=== PATIENT | male | born 1965 | race Caucasian/White ===

== ENCOUNTER 2017-06-09 12:56 | Emergency (ER) | payer MEDICARE, OTHER ==
[~2017-06-09] VITALS: Ht 180.3 cm; Wt 73.5 kg
[~2017-06-09 12:56] MED LIST: AMLO5TAB2 PO; ATORVASTATIN CA80 MG PO; CALC0.25 PO; CLON1PAT10 TD; CLOP75TA PO; CYCL5TAB PO; FAMO40TA4 PO; FOLI1CAP11 PO; FURO80TA3 PO; HEPA1000 IJ; ISOS120T2 PO; LISI40TA PO; METO-247 PO; SEVE800T9 PO; SODI650T PO
[2017-06-09 14:38] VITALS: BP 163/78
[2017-06-09] MEDS ORDERED: SPIR50TA2 PO (15:33)
[2017-06-09] MEDS ORDERED: PANT40TA5 PO (15:33)
[2017-06-09] MEDS ORDERED: CLON1PAT11 TD (15:33)
[2017-06-09] MEDS ORDERED: CYCL5TAB PO (15:33)
[2017-06-09] MEDS ORDERED: NITR0.4T22 SL (15:33)
[2017-06-09] MEDS ORDERED: METO10TA5 PO (15:33)
[2017-06-09] MEDS ORDERED: EMLA (15:33)
[2017-06-09] MEDS ORDERED: CLON1PAT9 TD (15:33)
[2017-06-09] MEDS ORDERED: SEVE800T9 PO (15:33)
[2017-06-09] MEDS ORDERED: AMLO10TA2 PO (15:33)
[2017-06-09] MEDS ORDERED: CARV25TA PO (15:33)
[2017-06-09] MEDS ORDERED: ASPI-630 PO (15:33)
[2017-06-09] MEDS ORDERED: MINO2.5T12 PO (15:33)
[2017-06-09 16:27] LABS: BASO # 0.1 x10^3/uL (0.0-0.2); BASO % 1 % (0-3); EOS % 3 % (0-3); HEMATOCRIT 21.3 % (39.0-53.0); HEMOGLOBIN 7.1 g/dL (13.0-17.5); LYMPH % 19 % (24-48); MEAN CORPUSCULAR HEMOGLOBIN 32 pg (25-35); MEAN CORPUSCULAR HGB CONC 33 g/dL (31-37); MEAN CORPUSCULAR VOLUME 96 fL (79-100); MONO % 8 % (0-9); NEUT % 68 % (31-73); PLATELET COUNT 198 x10^3/uL (140-400); RED BLOOD COUNT 2.23 x10^6/uL (4.30-5.70); RED CELL DISTRIBUTION WIDTH 17.9 % (11.5-14.5); WHITE BLOOD COUNT 10.3 x10^3/uL (4.0-11.0)
[2017-06-09 16:35] LABS: INR 1.1 (0.8-1.1); PROTHROMBIN TIME PATIENT 13.5 SEC (11.7-14.0)
[2017-06-09 16:46] LABS: CREATININE 12.5 mg/dL (0.7-1.3); GFR 4.3; POTASSIUM 5.7 mmol/L (3.5-5.1)
[2017-06-09 16:51] LABS: ALBUMIN 4.2 g/dL (3.4-5.0); ALBUMIN/GLOBULIN RATIO 1.1 (1.0-1.7); TOTAL BILIRUBIN 0.5 mg/dL (0.2-1.0); TOTAL PROTEIN 7.9 g/dL (6.4-8.2)
--- NOTE | 2017-06-09 17:56 | PHYS DOC ---
Past Medical History Past Medical History: Anemia, CAD, CHF, High Cholesterol, Heart Disease, Hypertension, [place], Renal Failure, Other Additional Past Medical Histor: HEMODIALYSIS Past Surgical History: Tonsillectomy, Other Additional Past Surgical Histo: PD TUBE PLACEMENT/REMOVAL, VASECTOMY, KNEE Alcohol Use: None Drug Use: None Adult General Chief Complaint Chief Complaint: BLOODY STOOL HPI HPI Patient is a 51 year old male, who is on home hemodialysis 6 days a week, presents to the ED with the complaint of bloody stools. Patient has been having intermittent bloody stools both when he has a bowel movement and also sees blood when he wipes, for at least 10 days. He states today he has lost a lot of blood. The patient has been seen at [facility] and also was seen at the ER in [place], where he lives. He has had 2 CT scans which were unrevealing. He has an appointment tomorrow at 3:00 to see DARA Mckeon, but states he was nervous because he lost a lot of blood today. He shouldn't has had endoscopy and they have not been able to find the source. Also, in the past, he has had camera endoscopy. Patient does home hemodialysis 6 days a week, he has done that for 5 years. He gives himself heparin for the hemodialysis and states he is scared to do dialysis because he does not want to take Keppra and when he is bleeding. His chronic meds include aspirin 81 mg but no other oral blood thinners. When the patient was seen at a hospital recently, they said he was "impacted" and gave him GoLYTELY. He did have stools after that. Patient states that he is at the top of the kidney transplant list and he is very adamant that he cannot have a blood transfusion because you cannot have a blood transfusion and then get a transplant. Patient also is complaining of left-sided abdominal pain intermittently. His previous ER visits have not yielded a cause for this even though he has had 2 CT scans in the last couple of weeks. The patient's was able to pull a CT scan report on her phone, from the medical record portal, and I was able to review that CT scan report. It was dated May 29. There was no finding that would explain left upper quadrant abdominal pain. He was noted to have a small ventral hernia containing no intestine. PCP in [facility] [employer] Dr. Quinn DIAMOND he was scheduled to see Dr. Wing Campbell tomorrow at 3:00, I don't believe he had a previous relationship with him. Review of Systems Review of Systems Constitutional: Denies fever or chills [] Respiratory: Denies shortness of breath [] Cardiovascular: Denies chest pain GI: As in history of present illness. : Denies dysuria or hematuria [] Musculoskeletal: Denies acute back pain or joint pain [] Neurologic: Denies focal weakness Allergies Allergies Physical Exam Physical Exam Constitutional: Well developed, well nourished, no acute distress, non-toxic appearance. Appears pale. Alert, mentating normally, warm and dry. Ambulatory. HENT: Normocephalic, atraumatic, bilateral external ears normal, nose normal. [ ] Eyes: conjunctiva normal, no discharge. [] Neck: Normal range of motion, no stridor. [] Cardiovascular:Heart rate regular rhythm, no murmur [] Lungs & Thorax: Bilateral breath sounds clear to auscultation [] Abdomen: Bowel sounds normal, soft, nondistended, tenderness to palpation mostly in the left upper quadrant, there is questionably a palpable fullness there but no guarding or rebound. Skin: Warm, dry, no erythema, no rash. [] Extremities: No tenderness, no cyanosis, no clubbing, ROM intact, no edema. [] Neurologic: Alert and oriented X 3, normal motor function, no focal deficits noted. [] Current Patient Data Vital Signs Vital Signs Date Time Temp Pulse Resp B/P (MAP) Pulse Ox O2 Delivery O2 Flow Rate FiO2 06/09/17 14:38 97.9 74 18 163/78 (106) 96 Room Air 97.9 Lab Values Laboratory Tests Test 06/09/17 16:10 White Blood Count 10.3 x10^3/uL (4.0-11.0) Red Blood Count 2.23 x10^6/uL (4.30-5.70) L Hemoglobin 7.1 g/dL (13.0-17.5) L Hematocrit 21.3 % (39.0-53.0) L Mean Corpuscular Volume 96 fL (79-100) Mean Corpuscular Hemoglobin 32 pg (25-35) Mean Corpuscular Hemoglobin Concent 33 g/dL (31-37) Red Cell Distribution Width 17.9 % (11.5-14.5) H Platelet Count 198 x10^3/uL (140-400) Neutrophils (%) (Auto) 68 % (31-73) Lymphocytes (%) (Auto) 19 % (24-48) L Monocytes (%) (Auto) 8 % (0-9) Eosinophils (%) (Auto) 3 % (0-3) Basophils (%) (Auto) 1 % (0-3) Neutrophils # (Auto) 7.0 x10^3uL (1.8-7.7) Lymphocytes # (Auto) 2.0 x10^3/uL (1.0-4.8) Monocytes # (Auto) 0.8 x10^3/uL (0.0-1.1) Eosinophils # (Auto) 0.3 x10^3/uL (0.0-0.7) Basophils # (Auto) 0.1 x10^3/uL (0.0-0.2) Prothrombin Time 13.5 SEC (11.7-14.0) Prothrombin Time INR 1.1 (0.8-1.1) PTT 31 SEC (24-38) Sodium Level 137 mmol/L (136-145) Potassium Level 5.7 mmol/L (3.5-5.1) H Chloride Level 95 mmol/L (98-107) L Carbon Dioxide Level 24 mmol/L (21-32) Anion Gap 18 (6-14) H Blood Urea Nitrogen 85 mg/dL (8-26) H Creatinine 12.5 mg/dL (0.7-1.3) H Estimated GFR (Cockcroft-Gault) 4.3 BUN/Creatinine Ratio 7 (6-20) Glucose Level 95 mg/dL (70-99) Calcium Level 9.0 mg/dL (8.5-10.1) Total Bilirubin 0.5 mg/dL (0.2-1.0) Aspartate Amino Transferase (AST) 14 U/L (15-37) L Alanine Aminotransferase (ALT) 14 U/L (16-63) L Alkaline Phosphatase 68 U/L (46-116) Total Protein 7.9 g/dL (6.4-8.2) Albumin 4.2 g/dL (3.4-5.0) Albumin/Globulin Ratio 1.1 (1.0-1.7) Lipase 152 U/L (73-393) Laboratory Tests 06/09/17 16:10 Laboratory Tests 06/09/17 16:10 EKG EKG [] Radiology/Procedures Radiology/Procedures [] Course & Med Decision Making Course & Med Decision Making Pertinent Labs and Imaging studies reviewed. (See chart for details) 51-year-old male, home hemodialysis patient 6 days a week, on the kidney transplant list, presents with ongoing bright red blood per rectum, intermittent for at least one to 2 weeks, states he lost a lot of blood today, has not been able to locate the source of bleeding. Today his hemoglobin is 7.1. Patient adamantly refuses blood transfusion at this time. He states he is on the transplant list and "you can't have a blood transfusion if you are on the transplant list". Also noted that his potassium is 5.7. Patient states "I don't worry about my potassium until it gets above 7." Patient attributes his potassium elevation to eating a baked potato. Patient states he has only had coffee and Sprite today. He is hopeful he might be able to have colonoscopy tomorrow. Patient is concerned because he does not feel safe using heparin for hemodialysis while he is actively bleeding. The patient at this time is hemodynamically stable although significantly anemic. Chart review, he was here in January 2016 with a hemoglobin of 12.9, so 7.1 represents a significant decline for him. I advised the patient and his that I recommend admitting him for urgent GI consultation and will also consult nephrology. He is agreeable to that plan. I discussed the case with Dr. Nunn, hospital medicine, who will admit the patient. I wrote bridge orders. I discussed the case with Dr. Kiran, GI. He requested that I obtain a nuclear medicine bleeding scan because it will be helpful if we can localize the source of bleeding to help decide about management. I did order that stat and I called radiology to call nuclear medicine and to get that done. Also with Dr. Wright, deck specialist science liaison. He will plan to dialyze the patient tomorrow. Patient was admitted in stable condition. He did not have any GI blood loss while in the emergency department. 184 after the patient had been admitted there was still in his ED room, Dr. Nunn was in the ED evaluating the patient when he became agitated and stated that he is going to leave, he just wants to go home and go see the GI doctor that he has an appointment with tomorrow. I tried to talk to the patient, I explained what the plan will be for his hospital stay, I reassured him that he will be seen tomorrow by both GI and nephrology, the patient would not listen, demanded that his IV to be taken out and adamantly stated that he is leaving. It was impossible to reason with the patient at this time and he barely stay long enough to get his saline lock removed by ED nursing staff prior to leaving. Disposition change to left AGAINST MEDICAL ADVICE. [] Dragon Disclaimer Dragon Disclaimer This electronic medical record was generated, in whole or in part, using a voice recognition dictation system. Departure Departure Impression: Primary Impression: GI bleed Additional Impressions: Chronic renal failure Hyperkalemia, diminished renal excretion Disposition: 07 AGAINST MEDICAL ADVICE Admitting Physician: Kristina Nunn Condition: STABLE Referrals: RICARDO SILVA MD (PCP) Problem Qualifiers CHLOE MYERS MD Jun 09, 2017 17:56
[2017-06-09] MEDS ORDERED: oxyCODONE IR 5 MG TABLET PO PRN (18:15)
[2017-06-09] MEDS ORDERED: ONDANSETRON PF 4 MG/2 ML VIAL. IV PRN (18:15)
[2017-06-09] MEDS ORDERED: CALCIUM CARBONATE 500 MG TAB.CHEW PO PRN (18:15)
[2017-06-09] MEDS ORDERED: MORPHINE SULFATE 2 MG/ML DISP.SYRIN. IV PRN (18:15)
[2017-06-09] MEDS ORDERED: ACETAMINOPHEN 325 MG TABLET. PO PRN (18:15)
[2017-06-09] MEDS ORDERED: ZOLPIDEM 5 MG TABLET. PO PRN (18:15)
[2017-06-09] MEDS ORDERED: PROCHLORPERAZINE 10 MG/2 ML VIAL. IV PRN (18:15)
--- NOTE | 2017-06-09 19:17 | PDOC ---
Provider Note Provider Note ER consult and discharge note on, Jerrod PABON 51-year-old male date of [birth year]. Admitted to the hospitalist service because of GI bleed bright red blood per rectum significant amount as relayed to me. hemoDynamically stable though. Hemoglobin 7.1 he is refusing any transfusion whatsoever. He claims his baseline hemoglobin is 10. Hemoglobin here is 12 1 yr ago. Somehow he shops in different hospitals. He mentions a [facility] and another institution. He mentions Rns at [facility],. at bedside. There is also a mention of another hospital that I cannot recall. He is basically frustrated because he has been having abdominal pain for the longest time. He claims he has had CT scans EGD and colonoscopy ultrasound etc. recommend different institutions with no results are at least not been given to him. He denies any nausea vomiting with bright red blood-for about a week now worsening today. His abdominal pains mostly in the left-sided epigastric area. But there is no guarding He's hemodialysis for 5 years at home [place] The rest of the labs show hemoglobin of 7.1. Creatinine 4.5 potassium 5.7. Claims his normal potassium of 7. He takes aspirin 81 once a day. He does smoke heavily. Does not wish to quit smoking. Smells of cigarettes. He claims he was high on the transplant list but somehow I'm having difficulty believing this especially if he is a smoker. When I told him this he then admits he was kicked out off the kidney TRANSPLANT list this and went to another institution and now is back on the transplant list. He is rather very poor and unreliable historian. He gets frustrated with my interaction then leaves AMA because he claims all the doctors just the same cannot tell what's wrong with him. Indicates takes forever for things to be done. I did tell him I we will get records from all the institutions he has been, GI doc will come see him tomorrow. He gets frustrated, gets up and asked RN to take off his IV line. He is disappointed about the long wait time at the emergency room etc. Past medical history: ESRD on dialysis on Epogen injections. He gets frustrated about the injections. I did educate him that epogen injections are usual for ESRD dialysis patients and he will be on it for life unless contraindicated. chronci Abdominal pain PAst Surgery. AV fistula NKDA Family history hypertension ROS as per history of present illness, bright red blood per rectum, abdominal pain A 14 point ROS was completed with the following noted as positive: Other systems reviewed and negative. \\CONSTITUTIONAL: No fever or chills EYES: No recent changes SKIN: No rash or itching CARDIOVASCULAR: No chest pain, syncope, palpitations, or edema RESPIRATORY: No SOB or cough GASTROINTESTINAL: No nausea, vomiting or abdominal pain NEUROLOGICAL: No headaches or weakness ENDOCRINE: No cold or heat intolerance GENITOURINARY: No urgency or frequency of urination MUSCULOSKELETAL: No back pain or joint pain LYMPHATICS: No enlarged lymph nodes PSYCHIATRIC: No anxiety or depression Physical Exam General: Alert, Oriented X3, Cooperative, No acute distress HEENT: Atraumatic, PERRLA, pAllor in the skin Lungs: Normal air movement, Other (wheezy) Heart: S1S2, RRR, no thrills, no gallops, no murmurs Cardiovascular: S1, S2 Abdomen: Normal bowel sounds, Soft, No tenderness, No hepatosplenomegaly, No masses, Other (obese) Rectal Exam: not examined PELVIC: Nml ext genitalia Extremities: No rashes, no edema, pulses full and equal Skin: No rashes, No breakdown, No significant lesion Neuro: Normal gait, Normal speech, Strength at 5/5 X4 ext, Normal tone, Sensation intact, Cranial nerves 3-12 NL, Reflexes 2+ Psych/Mental Status: Mental status NL, Mood NL Assessment and plan #1 GI bleed, bright red blood per rectum differentials diverticulosis AV malformation etc. #2 ESRD on deep hemodialysis #3 anemia of ESRD smoker ? On transplant list hyperkalemia Pt unfortunately went a AMA. Heavy significant time at the emergency room discussing with this very frustrated couple. Also discussed with EVERETT Luna M.D., Dr., MD Jun 09, 2017 19:17
[2017-06-09] MEDS ORDERED: SPIRONOLACTONE 25 MG TABLET PO SCH (21:00)
[2017-06-09] MEDS ORDERED: CYCLOBENZAPRINE 10 MG TABLET. PO SCH (21:00)
[2017-06-09] MEDS ORDERED: ATORVASTATIN CALCIUM 40 MG TABLET. PO SCH (21:00)
[2017-06-09] MEDS ORDERED: FAMOTIDINE 40 MG PO SCH (21:00)
[2017-06-09] MEDS ORDERED: MINOXIDIL 2.5 MG TABLET PO SCH (21:00)
[2017-06-09] MEDS ORDERED: CARVEDILOL 12.5 MG TABLET. PO SCH (21:00)
[2017-06-09] MEDS ORDERED: metOLazone 2.5 MG TABLET PO SCH (21:00)
[2017-06-10] MEDS ORDERED: PANTOPRAZOLE 40 MG TABLET.DR. PO SCH (07:00)
[2017-06-10] MEDS ORDERED: SEVELAMER CARBONATE 800 MG TABLET. PO SCH (08:00)
[2017-06-10] MEDS ORDERED: cloNIDine TTS-3 1 PATCH PATCH.TDWK TD SCH (09:00)
[2017-06-10] MEDS ORDERED: amLODIPine BESYLATE 10 MG TABLET PO SCH (09:00)
[2017-06-10] MEDS ORDERED: LISINOPRIL 40 MG TABLET. PO SCH (09:00)
[2017-06-10] MEDS ORDERED: FOLIC/VIT B COMP W-C (RENAL) TABLET. PO SCH (09:00)
[2017-06-10] MEDS ORDERED: FUROSEMIDE 80 MG TABLET. PO SCH (09:00)
[2017-06-16] MEDS ORDERED: cloNIDine TTS-1 1 PATCH PATCH.TDWK TD SCH (09:00)
== END 2017-06-09 18:50 | disposition left against medical advice (07) ==
LOC: ER 12:56 → UNDOADMIN 17:53 → 5 NORTH 17:53 → ER 18:50
DX: K92.2 Gastrointestinal hemorrhage, unspecified (principal); I13.0 Hypertensive heart and chronic kidney disease with heart failure and stage 1 through stage 4 chronic kidney disease, or unspecified chronic kidney disease; N18.9 Chronic kidney disease, unspecified; I50.9 Heart failure, unspecified; E87.5 Hyperkalemia; Z99.2 Dependence on renal dialysis; I25.10 Atherosclerotic heart disease of native coronary artery without angina pectoris; Z86.2 Personal history of diseases of the blood and blood-forming organs and certain disorders involving the immune mechanism
CPT/HCPCS: 36415; 80053; 83690; 85025; 85610; 85730; 99284